=== PATIENT | female | born 1960 | race Caucasian/White ===

== ENCOUNTER → 2017-02-15 | Outpatient (CLI) | payer BC | LOC: RAD 10:11 | PROVIDERS: ATTEND Family Medicine | DX: Z12.31 Encounter for screening mammogram for malignant neoplasm of breast (principal) | CPT/HCPCS: 77067 ==

== ENCOUNTER → 2020-02-06 | Outpatient (CLI) | payer BC ==
--- NOTE | 2020-02-06 20:47 | Diagnostic Imaging Report ---
INDICATION: Screening. At this time there are no current complaints. EXAMINATION: Bilateral digital screening mammogram with CAD. 3D tomographic images were obtained and reviewed. The current study was also evaluated with a Computer Aided Detection (CAD) system. COMPARISON: This study was compared to the prior exams of 02/15/2017, 01/20/2016 and 08/26/2013. FINDINGS: The fibroglandular tissue in both breasts is dense. There is no primary or secondary sign of malignancy noted. However, on the CC tomographic images of the right breast in the lateral aspect of the breast there is a subtle area of architectural distortion ( slide 1). There is no corresponding abnormality identified with certainty on the MLO view and this finding is probably related to fibroglandular tissue alone. Even so, I would recommend that a compression view of this area be obtained in the CC projection as well as a true lateral view for further study. Ultrasound of this portion of the breast would be recommended as well. IMPRESSION: Additional mammographic views and ultrasound of the right breast would be recommended for further study. ACR BI-RADS Category 0: Incomplete. (Needs additional imaging evaluation). Result letter will be mailed to the patient. Note: At least 10% of breast cancer is not imaged by mammography. Dictated by: Dictated on workstation # [id number]
== END ==
LOC: RAD 14:45
PROVIDERS: ATTEND Family Medicine
DX: Z12.31 Encounter for screening mammogram for malignant neoplasm of breast (principal); R92.8 Other abnormal and inconclusive findings on diagnostic imaging of breast
CPT/HCPCS: 77063; 77067

== ENCOUNTER → 2020-02-20 | Outpatient (CLI) | payer BC ==
--- NOTE | 2020-02-20 10:59 | Diagnostic Imaging Report ---
INDICATION: Right breast questioned architectural distortion noted on recent screening mammogram. CORRELATION is made with screening mammogram from 02/06/2020 and diagnostic mammogram performed earlier today. Sonographic interrogation of the outer right breast was performed. No solid or cystic mass is detected. No sonographic abnormality is detected. IMPRESSION: BI-RADS Category 1 No sonographic abnormality is detected. The patient may return to routine annual screening mammography. Dictated by: Dictated on workstation # [id number]
--- NOTE | 2020-02-24 10:38 | Diagnostic Imaging Report ---
INDICATION: Right breast architectural distortion. Patient presents for additional views. COMPARISON: Correlation is made with the screening study from 02/06/2020. TECHNIQUE: Unilateral right 2D and 3D diagnostic mammography was performed. This includes spot compression CC, rolled CC, and conventional 90 degree lateral views. The current study was evaluated with a Computer Aided Detection (CAD) system. FINDINGS: The additional views fail to demonstrate a discrete mass. No definite architectural distortion is seen. No suspicious microcalcifications are identified. IMPRESSION: No mammographic features suspicious for malignancy are identified. Even so, directed sonographic interrogation of the outer right breast is recommended and will be performed today. ACR BI-RADS Category 0: Incomplete. (Needs additional imaging evaluation). Result letter will be mailed to the patient. Note: At least 10% of breast cancer is not imaged by mammography. Dictated by: Dictated on workstation # [id number]
== END ==
LOC: RAD 09:07
PROVIDERS: ATTEND Nurse Practitioner Family
DX: N60.11 Diffuse cystic mastopathy of right breast (principal)
CPT/HCPCS: 76642; 77065; G0279